=== PATIENT | female | born 1995 | race Caucasian/White ===

== ENCOUNTER 2016-07-01 07:40 | Inpatient (IN) | payer OTHER ==
[2016-07-01] MEDS ORDERED: Misoprostol TAB* 100 MCG PO ONE ×2 (08:24→12:45)
[2016-07-01] MEDS ORDERED: Misoprostol TAB* 100 MCG ONE (08:42)
[2016-07-02] MEDS ORDERED: Misoprostol TAB* 100 MCG PO ONE ×2 (08:13→12:12)
[2016-07-02] MEDS ORDERED: Dinoprostone* 10 MG VAG.SUPP VAGINAL ONE (17:20)
[2016-07-03] MEDS ORDERED: Promethazine INJ(RESTRICTED)* 25 MG/ML 1 ML VIAL IM PRN (01:10)
[2016-07-03] MEDS ORDERED: Nalbuphine* 20 MG/ML 1 ML VIAL IM ONE (01:11)
[2016-07-03] MEDS ORDERED: Influenza VAC *QUAD* 2016-17* 0.5 ML SYRINGE IM ONE (09:00)
[2016-07-03] MEDS ORDERED: Oxytocin in LR* 20 UNITS/1,000 ML BAG IVPB SCH ×2 (09:00→16:00)
[2016-07-03] MEDS ORDERED: Oxytocin in LR* 20 UNITS/1,000 ML BAG IVPB ONE (09:03)
[2016-07-03 09:04] LABS: Hematocrit 39 % (35-47); Hemoglobin 13.3 g/dl (12.0-16.0); Mean Corpuscular HGB Conc 34 g/dl (31-36); Mean Corpuscular Hemoglobin 28 pg (27-31); Mean Corpuscular Volume 83 fL (80-97); Mean Platelet Volume 9 um3 (7.4-10.4); Red Blood Count 4.74 10^6/ul (4.0-5.4); Red Cell Distribution Width 14 % (10.5-15); White Blood Count 17.2 10^3/ul (3.5-10.8)
[2016-07-03] MEDS ORDERED: OBEPIDURAL* 250 ML ONE (09:38)
[2016-07-03] MEDS ORDERED: Phenylephrine IV* 40 MCG/ML 10 ML SYRINGE IV PUSH PRN ×2 (10:26)
[2016-07-03] MEDS ORDERED: Famotidine TAB* 20 MG PO PRN (10:26)
[2016-07-03] MEDS ORDERED: Sodium Citrate/Citric Acid* 15 ML UDC PO PRN (10:26)
[2016-07-03] MEDS ORDERED: OBEPIDURAL* 250 ML EPIDURAL SCH (11:00)
[2016-07-03] MEDS ORDERED: ceFOXitin 2 GM IVPREMIX* 2 GM/50 ML BAG IVPB ONE (13:12)
[2016-07-03] MEDS ORDERED: Sodium Citrate/Citric Acid* 15 ML UDC PO ONE (13:12)
[2016-07-03] MEDS ORDERED: ceFOXitin 2 GM IVPREMIX* 2 GM/50 ML BAG ONE (13:15)
[2016-07-03] MEDS ORDERED: Sodium Citrate/Citric Acid* 15 ML UDC ONE (13:15)
[2016-07-03] MEDS ORDERED: Morphine PF AMP (0.5MG/ML)* 5 MG/10 ML AMP ONE (13:25)
[2016-07-03] MEDS ORDERED: Lidocaine 2% EPI 1:200000 MPF* 20 ML VIAL ONE (13:26)
[2016-07-03] MEDS ORDERED: Dexamethasone IV* 4 MG/ML 1 ML (4 MG) ONE ×2 (13:26→14:22)
[2016-07-03] MEDS ORDERED: Ondansetron INJ* 2 MG/ML VIAL ONE ×2 (13:26→14:22)
[2016-07-03] MEDS ORDERED: OXYTOCIN* 10 UNITS/ML 1 ML VIAL ONE ×2 (13:26→14:44)
[2016-07-03] MEDS ORDERED: Sodium Bicarbonate 8.4% SYR* 10 ML SYRINGE ONE (13:26)
[2016-07-03] MEDS ORDERED: Phenylephrine IV* 40 MCG/ML 10 ML SYRINGE ONE (14:00)
[2016-07-03] MEDS ORDERED: Metoprolol Tartrate IV* 1 MG/ML 5 ML VIAL ONE (14:10)
[2016-07-03] MEDS ORDERED: Midazolam* 1 MG/ML 2 ML VIAL (2 MG) ONE ×2 (14:10→14:36)
[2016-07-03] MEDS ORDERED: oxyCODONE/Acetamin 5/325 MG* TAB PO PRN ×4 (14:27→15:09)
[2016-07-03] MEDS ORDERED: Ketorolac INJ* 30 MG/ML 1 ML VIAL IV PRN (14:27)
[2016-07-03] MEDS ORDERED: Nalbuphine* 20 MG/ML 1 ML VIAL IV PRN ×2 (14:27)
[2016-07-03] MEDS ORDERED: fentaNYL* 50 MCG/ML 2 ML VIAL (100 MCG VIAL) IV PRN (14:27)
[2016-07-03] MEDS ORDERED: Naloxone* 0.4 MG/ML 1 ML VIAL IV PRN (14:27)
[2016-07-03] MEDS ORDERED: Glycerin ADULT SUPP PR PRN (15:09)
[2016-07-03] MEDS ORDERED: Witch Hazel PAD* JAR TOPICAL PRN (15:09)
[2016-07-03] MEDS ORDERED: Acetaminophen TAB* 325 MG PO PRN (15:09)
[2016-07-03] MEDS ORDERED: Ibuprofen TAB* 600 MG PO PRN (15:09)
[2016-07-03] MEDS ORDERED: Dibucaine 1% 28.35 GM TUBE PR PRN (15:09)
[2016-07-03] MEDS: Simethicone TAB* 80 MG TAB.CHEW PO SCH ×2 (17:30→22:29)
[2016-07-03] MEDS: Ibuprofen TAB* 600 MG PO SCH ×2 (17:59→22:29)
[2016-07-03] MEDS: Docusate CAP* 100 MG PO SCH (22:29)
--- NOTE | 2016-07-04 02:39 | OP ---
AMENDED REPORT NOW INCLUDES DATE OF OPERATION - ESIGNED BEFORE ADJUSTMENT * DATE OF OPERATION: 07/03/16 - ROOM #118 DATE OF : 89 SURGEON: Dr. Díaz. CANDLE MOLDER MACHINE: Amira Trejo, Certified Nurse Refueler. ANESTHESIOLOGIST: Dr. Mckeon. ANESTHESIA: Epidural. PRE-OP DIAGNOSIS: Category II heart tracing remote from delivery, 4 cm dilated. POST-OP DIAGNOSIS: Category II heart tracing remote from delivery, 4 cm dilated. OPERATIVE PROCEDURE: Primary low-flap transverse section via Pfannenstiel, uterus closed in 2 layers. ESTIMATED BLOOD LOSS: 600 cc. FLUIDS: 700 cc, intraoperatively. DRAINS: Randall catheter with 300 cc clear urine, intraoperatively. COMPLICATIONS: None. COUNTS: Sponge, lap, and needle count were correct x2. FINDINGS: Viable female infant in the vertex presentation, cord around the neck x1, clear amniotic fluid. Apgars were 9 and 9. Weight is 6 pounds 4 ounces. The uterus had a midline septum at the fundus that was approximately 2 to 3 cm in length intrauterine, normal-appearing ovaries and fallopian tubes bilaterally. CONDITION: The patient was brought to the recovery room, awake and in stable condition. DESCRIPTION OF PROCEDURE: The patient was brought to the operating room. When epidural anesthesia was found to be adequate, the patient was prepped and draped in the usual sterile fashion in the dorsal supine position with a leftward tilt. A Randall catheter had been placed previously under sterile conditions and was draining clear urine. Time-out was performed. The epidural was tested with the Allis clamps and found to be adequate. A Pfannenstiel skin incision was made approximately 2 cm above the symphysis pubis. The patient had shaved prior to admission and there were some follicles that appear consistent with folliculitis. I tried to avoid those as much as possible in the incision. The incision was made approximately 2 cm above the symphysis pubis. It was carried down to the underlying layer of fascia. The fascia was incised in the midline and the fascial incision was extended laterally with the Roberts scissors. The fascia was grasped with the Irving clamps and the rectus muscle was dissected using sharp and blunt dissection. The rectus muscle was found to in the midline. The peritoneum was identified, tented up, and entered bluntly. The peritoneal incision was extended bluntly. The bladder blade was inserted. The vesicouterine peritoneum was identified and a bladder flap was created. The bladder blade was reinserted, a low-flap transverse incision was made on the uterus to the level of the membranes. The uterine incision was extended bluntly. Clear amniotic fluid was encountered. The infant was delivered atraumatically from the vertex presentation. There was a cord around the neck x1, reduced. The baby was vigorous. The cord was milked. The cord was clamped and cut and the was handed off to the waiting design quality engineer, Dr. Combs. Apgars were 9 and 9. The placenta was delivered. The uterus was exteriorized. The uterus was cleared of all clots and debris. At this point, the uterine septum was noted. The uterine incision was closed using 0 Vicryl in a running locked fashion. A second layer of the same suture was used to imbricate and obtain excellent hemostasis. The ovaries and fallopian tubes were examined and found to be normal. The abdomen and pelvis were copiously irrigated with warm normal saline. Once again, the uterine incision was examined and found to be hemostatic. The uterus was returned to the pelvis. The gutters were cleared off all clots and debris and the uterine incision was once again examined and found to be hemostatic. The peritoneum was closed with 3-0 Vicryl. The subfascial layer was examined and found to be hemostatic. The fascia was closed using 0 Vicryl. The subcutaneous tissue was irrigated. Any small bleeders were cauterized with the Bovie. The subcutaneous tissue was reapproximated with three interrupted sutures of 3-0 Vicryl. The skin was closed with 4-0 Monocryl in a subcuticular fashion. Steri-Strips were applied. A pressure dressing was applied and the patient was brought to the recovery room, awake and in stable condition. [id number]/[facility] #: [id number] [facility] HEALTH SYSTEMRachael
[2016-07-04] MEDS: Ibuprofen TAB* 600 MG PO SCH ×2 (04:55→05:56)
[2016-07-04 08:31] LABS: Hematocrit 32 % (35-47); Hemoglobin 10.6 g/dl (12.0-16.0); Mean Corpuscular HGB Conc 33 g/dl (31-36); Mean Corpuscular Hemoglobin 28 pg (27-31); Mean Corpuscular Volume 83 fL (80-97); Mean Platelet Volume 9 um3 (7.4-10.4); Red Blood Count 3.79 10^6/ul (4.0-5.4); Red Cell Distribution Width 14 % (10.5-15); White Blood Count 22.9 10^3/ul (3.5-10.8)
[2016-07-04] MEDS: Ferrous Gluconate TAB* 324 MG TAB PO SCH (09:00)
[2016-07-04] MEDS: Simethicone TAB* 80 MG TAB.CHEW PO SCH ×4 (09:29→22:22)
[2016-07-04] MEDS: Docusate CAP* 100 MG PO SCH ×3 (09:29→22:22)
[2016-07-04] MEDS: Ibuprofen TAB* 600 MG PO PRN ×2 (12:35→18:30)
[2016-07-05] MEDS: Ibuprofen TAB* 600 MG PO PRN ×4 (01:07→21:37)
[2016-07-05] MEDS: Docusate CAP* 100 MG PO SCH ×3 (07:55→21:36)
[2016-07-05] MEDS: Simethicone TAB* 80 MG TAB.CHEW PO SCH ×4 (07:55→21:36)
--- NOTE | 2016-07-05 20:24 | PTEDU ---
Patient Name: RACHELLE WORLEY RACHELLE WORLEY selected video: Follow Me Mum: [employer] [facility] Successful to view on 07/05/19 17 at 8:22:58 PM [id number]
[2016-07-06] MEDS: Ibuprofen TAB* 600 MG PO PRN (05:27)
[2016-07-06] MEDS: Ferrous Gluconate TAB* 324 MG TAB PO SCH (06:05)
[2016-07-06 08:07] VITALS: BP 115/61
[2016-07-06] MEDS: Simethicone TAB* 80 MG TAB.CHEW PO SCH (11:28)
[2016-07-06] MEDS: Docusate CAP* 100 MG PO SCH (11:28)
== END 2016-07-06 11:36 | disposition home or self-care (01) | DRG 540 ==
LOC: MCHOBOUT 07:40 → MCHOB 15:54
PROVIDERS: ADMIT Midwife; ATTEND Obstetrics & Gynecology
PROC: 3E033VJ Introduction of Other Hormone into Peripheral Vein, Percutaneous Approach (ICD-10-PCS; 2016-07-03)
PROC: 10907ZC Drainage of Amniotic Fluid, Therapeutic from Products of Conception, Via Natural or Artificial Opening (ICD-10-PCS; 2016-07-03)
PROC: 4A1H7CZ Monitoring of Products of Conception, Cardiac Rate, Via Natural or Artificial Opening (ICD-10-PCS; 2016-07-03)
PROC: 10D00Z1 Extraction of Products of Conception, Low, Open Approach (ICD-10-PCS; principal; 2016-07-03 13:43)
DX: O76 Abnormality in fetal heart rate and rhythm complicating labor and delivery (principal); O48.0 Post-term pregnancy; Z3A.41 41 weeks gestation of pregnancy; Z37.0 Single live birth
CPT/HCPCS: 36415; 59200; 85025; 86850; 86900; 86901; A9270-GY; J0694; J1100; J1885; J2250; J2300; J2405; J2550; J2590; J3490; S0191

== ENCOUNTER 2016-10-16 19:01 | Emergency (ER) | payer OTHER ==
[2016-10-16 20:19] VITALS: BP 112/69
--- NOTE | 2016-10-16 20:28 | UC ---
Respiratory Complaint HPI - HPI Summary HPI Summary: "Cough for 4 days, asthma exacerbation with wheezing". Supposed to be on advair but lost it and hasnt gone back to her Dr b/c he left. Not sure of dose. lost albuterol too. Had a baby 3 mo ago. Had depo 2 mo ago. Denies . Not breast feeding. + wheezing. Here with her friend Ac. Denies fever. usually gets an abx and prednisone for these sx, but unsure of which abx and what dose of steroid. She is a vague/poor historian. - History of Current Complaint Chief Complaint: UCRespiratory Stated Complaint: COUGH,CONGESTION Time Seen by Provider: 10/16/16 20:19 Hx Last Menstrual Period: constant bleeding - Allergies/Home Medications Allergies/Adverse Reactions: Allergies Allergy/AdvReac Type Severity Reaction Status Date / Time No Known Allergies Allergy Verified 10/16/16 20:19 Home Medications: Home Medications Medroxyprogesterone Acetate (A [Depo-Provera] 400 mg IM SEE INSTRUCTIONS [History Confirmed 10/16/16] PMH/Surg Hx/FS Hx/Imm Hx Previously Healthy: Yes Respiratory History: Asthma - Surgical History Surgical History: Yes Surgery Procedure, Year, and Place: 07/03/16 - Family History Known Family History: Negative: Respiratory Disease - no asthma - Social History Alcohol Use: None Substance Use Type: None Smoking Status (MU): Light Every Day Tobacco Smoker Amount Used/How Often: 1 PPD Length of Time of Smoking/Using Tobacco: 6+ years - Immunization History Most Recent Influenza Vaccination: declined Most Recent Tetanus Shot: 03/30/16 Most Recent Pneumonia Vaccination: none Review of Systems Constitutional: Chills Skin: Negative Eyes: Negative ENT: Negative Respiratory: Cough, Other - +wheezing Cardiovascular: Negative Gastrointestinal: Negative Genitourinary: Negative Motor: Negative Neurovascular: Negative Musculoskeletal: Negative Neurological: Negative Psychological: Negative All Other Systems Reviewed And Are Negative: Yes Physical Exam Triage Information Reviewed: Yes Appearance: Well-Appearing, No Pain Distress, Well-Nourished Vital Signs: Initial Vital Signs Temp 100.2 F 10/16/16 20:10 Pulse 105 10/16/16 20:10 Resp 24 10/16/16 20:10 BP 112/69 10/16/16 20:10 Pulse Ox 100 10/16/16 20:10 Vital Signs Reviewed: Yes Eye Exam: Normal ENT Exam: Normal ENT: Positive: Pharyngeal erythema - +PND, Nasal congestion, TMs normal. Negative: TM bulging, TM dull, TM red, Tonsillar swelling, Tonsillar exudate, Other: - no sinus tenderness. Neck exam: Normal Neck: Positive: Supple, Nontender, No Lymphadenopathy Respiratory: Positive: Chest non-tender, Decreased breath sounds - mild throughout, Wheezing. Negative: No respiratory distress, No accessory muscle use, Crackles, Rhonchi, Stridor Cardiovascular Exam: Normal Cardiovascular: Positive: RRR, No Murmur, Pulses Normal, Brisk Capillary Refill Abdominal Exam: Normal Abdomen Description: Positive: Nontender, Soft Musculoskeletal Exam: Normal Neurological Exam: Normal Psychological Exam: Normal Skin Exam: Normal UC Diagnostic Evaluation - Laboratory O2 Sat by Pulse Oximetry: 100 Respiratory Course/Dx - Course Course Of Treatment: We discusse risks of prednisone including but not limited to anxiety, agitation, insomnia, GI upset, elevated blood pressures and blood sugar readings, adrenal crisis and avascular necrosis of the hip. - Differential Dx/Diagnosis Differential Diagnosis/HQI/PQRI: Asthma, Bronchitis, Laryngitis Provider Diagnoses: asthma exacerbation. Discharge - Discharge Plan Condition: Stable Disposition: HOME Prescriptions: Amoxicillin (*) [Amoxicillin 875 MG (*)] 875 mg PO BID #19 tab Fluticasone-Salmeterol 100-50* [Advair Diskus 100-50*] 1 puff INH BID #1 diskus Methylprednisolone [Medrol Dosepak 4 MG*] 4 mg PO DAILY #1 gertrude Patient Education Materials: Asthma (ED) Referrals: Gene Rivera MD [Medical Doctor] - Additional Instructions: Make sure to take a probiotic daily while on the antibiotic - you can buy this at the drug store. You should be compliant with your asthma medications as directed. We have given you an albuterol inhaler. You should take this every 4- 6 hrs while you are sick. go to ER if symptoms worsen.
[2016-10-16] MEDS ORDERED: Amoxicillin CAP* 500 MG PO ONE (20:32)
[2016-10-16] MEDS ORDERED: Albuterol HFA INHALER* 8 gm MDI INH ONE (20:32)
--- NOTE | 2016-10-17 10:01 | UC ---
Progress - Progress Note Progress Note: Please notify patient that her advair was not covered she should continue her albuterol MDI and medrol dosepak as directed She needs to see her MD about chronic maintenance if no primary give her Tami Head's number (physician referral center)
== END 2016-10-16 20:49 | disposition home or self-care (01) ==
LOC: UCCORT 19:01
DX: J45.901 Unspecified asthma with (acute) exacerbation (principal); F17.210 Nicotine dependence, cigarettes, uncomplicated
CPT/HCPCS: 99212; A9270-GY; G0463